=== PATIENT | male | born 1940 | race Caucasian/White ===

== ENCOUNTER 2016-09-28 14:14 | Inpatient (IN) | payer MEDICARE, OTHER ==
[~2016-09-28] VITALS: Ht 177.8 cm; Wt 111.7 kg
[2016-11-01] MEDS ORDERED: CLON1TAB PO (13:16)
[2016-11-01] MEDS ORDERED: CITA20TA4 PO (13:16)
[2016-11-01] MEDS ORDERED: LEXA20TA PO (13:16)
[2016-11-01] MEDS ORDERED: TAMS5CAP PO (15:27)
[2016-11-01] MEDS ORDERED: COZA100T PO (15:27)
[2016-11-01] MEDS ORDERED: TIZA2TAB PO (15:27)
[2016-11-01] MEDS ORDERED: TOLT1TAB16 PO (15:27)
[2016-11-01] MEDS ORDERED: AMLO10TA2 PO (15:27)
[2016-11-01] MEDS ORDERED: IBUP-232 PO (15:27)
[2016-11-01] MEDS ORDERED: MISC1TAB PO (15:27)
--- NOTE | 2016-12-24 23:58 | MH ---
cc: ANTHONY PEREA DATE OF ADMISSION: 12/25/2016 ADMITTING DIAGNOSIS: Malfunctioning left medial compartment resurfacing arthroplasty. HISTORY OF PRESENT ILLNESS: This patient is a 75 year-old male status post previous left knee resurfacing arthroplasty, who had done well but over the last year has developed progressive varus alignment and pain. Investigative study shows evidence of subsidence of the tibial component. He now presents for revision arthroplasty. PAST MEDICAL HISTORY: See attached notes. SOCIAL HISTORY, FAMILY HISTORY, AND REVIEW OF SYSTEMS: See attached notes. PHYSICAL EXAMINATION: GENERAL: The patient is a 75 year-old male in moderate distress with his left knee. HEENT: Normocephalic, atraumatic. Pupils equal, round, reactive to light and accommodation. Extraocular motions intact. NECK: Supple. CHEST: Clear. HEART: Regular rate and rhythm. ABDOMEN: Soft, nontender, normoactive bowel sounds. MUSCULOSKELETAL EXAMINATION: Left knee: Pain with range of motion, varus alignment, well-healed incision. Crepitus with range of motion, pain with range of motion. Neurologic and vascular examination is within normal limits. IMPRESSION: Malfunctioning left knee unicompartmental replacement arthroplasty. PLAN: Revision left total knee replacement arthroplasty. CONSENT: There are risks with surgery including infection, bleeding, loss of motion, continued pain, need for further surgery, neurologic or vascular injury, etc. The patient understands these issues and wishes to press on with surgery as outlined above. Anthony Perea MD [facility] [place] /10:49 PM /11:51 PM
[2016-12-25] MEDS ORDERED: BUPIVACAINE HCL PF 0.5% 30 ML VIAL NB ONE (07:20)
[2016-12-25] MEDS ORDERED: BUPIVACAINE HCL PF 0.25% 30 ML VIAL NB ONE (07:20)
[2016-12-25 09:50] VITALS: BP 114/67; PULSE 58; RESP 18; TEMP 98.6; O2SAT 95
[2016-12-25] MEDS ORDERED: VANCOMYCIN HCL 1000 MG VIAL ONE ×2 (10:11→10:36)
[2016-12-25] MEDS ORDERED: LACTATED RINGER'S 1000 ML INJ 1,000 ML ONE (10:11)
[2016-12-25] MEDS ORDERED: SODIUM CHLOR 0.9% 250 ML INJ 250 ML ONE ×2 (10:11→10:37)
[2016-12-25] MEDS ORDERED: GENTAMICIN SULFATE 80 MG/2 ML VIAL ONE (10:21)
[2016-12-25] MEDS ORDERED: DEXAMETHASONE SOD PHOS 4 MG/ML VIAL ONE (10:48)
[2016-12-25] MEDS ORDERED: FAMOTIDINE 20 MG/2 ML VIAL ONE (10:48)
[2016-12-25] MEDS ORDERED: MIDAZOLAM HCL 5 MG/5 ML VIAL ONE (10:48)
[2016-12-25] MEDS ORDERED: ceFAZolin 2 GM PREMIX 50 ML ONE (10:50)
[2016-12-25] MEDS: TRANEXAMIC ACID IV SCH ×2 (11:00→12:41)
[2016-12-25] MEDS ORDERED: VANCOMYCIN 1000 MG/NS 250 ML (for <70 kg) IV SCH ×2 (11:00)
[2016-12-25] MEDS: EXPAREL PERI-ARTICULAR INJECTION (TOTAL VOL. 60 ML) P-ARTICULR SCH ×4 (11:00→12:42)
[2016-12-25] MEDS: SODIUM CHLORIDE 0.9% IV SCH ×2 (11:00→12:41)
[2016-12-25] MEDS: POVIDONE IODINE 7.5% SCRUB 118 ML BOTTLE TOP SCH (11:00)
[2016-12-25] MEDS ORDERED: ceFAZolin 2 GM PREMIX 50 ML IV SCH (11:00)
[2016-12-25] MEDS ORDERED: METOPROLOL TARTRATE 25 MG TAB PO PRN (12:00)
[2016-12-25] MEDS ORDERED: INSULIN HUMAN REGULAR 1,000 UNITS/10 ML VIAL SQ PRN (12:00)
[2016-12-25] MEDS: SODIUM CHLORID 0.9% 500 ML IV SCH (12:00)
[2016-12-25] MEDS: LACTATED RINGER'S 1000 ML IV SCH (12:00)
[2016-12-25] MEDS ORDERED: NEOSTIGMINE 3 MG/3 ML SYR IV ONE (12:25)
[2016-12-25] MEDS ORDERED: PROPOFOL 200 MG/20 ML AMP IV ONE (12:25)
[2016-12-25] MEDS ORDERED: ONDANSETRON HCL 4 MG/2 ML VIAL IV PUSH ONE (12:25)
[2016-12-25] MEDS ORDERED: LACTATED RINGER'S 1000 ML INJ 1,000 ML IV ONE (12:25)
[2016-12-25] MEDS: LACTATED RINGER'S 1000 ML INJ 1,000 ML IV SCH (13:59)
[2016-12-25] MEDS ORDERED: TEMAZEPAM 15 MG CAP PO PRN (14:00)
[2016-12-25] MEDS ORDERED: NALOXONE HCL 0.4 MG/ML AMP IV PRN (14:00)
[2016-12-25] MEDS ORDERED: ALUMINUM/MAGNESIUM/SIMETH 30 ML CUP PO PRN (14:00)
[2016-12-25] MEDS ORDERED: MISCELLANEOUS NURSING INFORMATION XX PRN (14:00)
[2016-12-25] MEDS ORDERED: SODIUM CHLORIDE 0.9% FLUSH 5 ML FLUSH IVF PRN (14:00)
[2016-12-25] MEDS ORDERED: BISACODYL 10 MG SUPP PR PRN (14:00)
[2016-12-25] MEDS ORDERED: ONDANSETRON HCL 4 MG/2 ML VIAL IVP PRN (14:00)
[2016-12-25] MEDS ORDERED: Post-op Orders (for Pharmacy) MISC XX ONE (14:00)
[2016-12-25] MEDS ORDERED: MORPHINE SULFATE 8 MG/ML INJ IV PUSH PRN (14:00)
[2016-12-25] MEDS ORDERED: MORPHINE SULFATE 30 MG/30 ML PCA IV SCH (14:00)
--- NOTE | 2016-12-25 14:09 | PD.OP ---
cc: Isaiah Zhang. Operative Report Date of Surgery: Dec 25, 2016 Preoperative Diagnosis: Malfunctioning left knee replacement arthroplasty. Loosened tibial component Postoperative Diagnosis: Same Procedure: Revision left total knee replacement arthroplasty Anesthesia: Gen. Surgeon: Isaiah Zhang Manager Pmo(s): CANDELARIO Mohan Operation and Findings: EBL: 150 cc INDICATION: This patient presents after having had a partial knee replacement in the past. There is evidence of subsidence of the medial component. Mild varus deformity is seen. Reactive changes at the tibia are noted. This patient presents for revision knee surgery. NOTE: Veronica Mohan PA-C was present for the entire surgical procedure as my records management assistant. In my medical opinion her skill and care was necessary for proper management of this patient. TOURNIQUET TIME: 75 minutes COMPANY: [employer] FEMUR: Size 4, posterior stabilized, left TIBIA: Size 5, fixed bearing PATELLA: 38 mm POLYETHYLENE INSERT: 12.5mm, size 5 PROCEDURE: This patient was brought the operating room and anesthetized in the supine position. The patient was positioned supine on the table. The tourniquet was placed about the thigh, and the leg was scrubbed with alcohol followed by Hibiclens followed by ChloraPrep and draped sterilely. A timeout was done, and antibiotics were given. After exsanguination the tourniquet was inflated to 250 mmHg. An anterior incision was made excising the previous incision and a median parapatellar arthrotomy was performed. The patella was released laterally and subluxed allowing freehand cut of the patella which was then sized. A metal cap was placed over the exposed patellar surface for protection. A helicopter pilot instructor hole was placed in the distal femur allowing a 4 valgus cut removing 10 mm from the distal femur. The previous femoral component showed minimal loosening. We were able to cut behind that. We then used multiple osteotomes were removed from the rest the bone. It was able to be removed retrograde without having any significant loss of bone. Anterior posterior and chamfer cuts were made. The posterior stabilize osteotomy was made. The attention was directed to the tibia. Retractors were positioned. The external alignment guide was used allowing the lateral tibia to be used as referencing guide and cut utilizing an oscillating saw taking care to avoid any injury to the surrounding soft tissues. The tibial component had subsided. It was down especially on the medial edge. We left the tibial component in place and cut just below that sizing to take approximately 10-11 mm from the lateral side which removed about 5 mm from the medial side. This placed this right under the tibial component removing some of the previous bone cement. The medial side showed softening with granulation tissue consistent with tibial subsidence. This was sized properly. Trial reduction showed that the insert fit nicely. The patient had range of motion extension 0 flexion 125. A medial release as not necessary. The bony surfaces prepared. On the back table 2 packets of methylmethacrylate were mixed. The components were cemented. Excess cement was removed. The tourniquet let down and hemostasis was controlled. The final plastic insert was inserted. Range of motion was the same as previously noted. A drain was brought through a separate stab incision. The arthrotomy was repaired with interrupted #1 Vicryl suture, subcutaneous tissue 2-0 Vicryl suture and skin with metallic sharmila A sterile dressing was applied. Sponge counts, needle counts and instrument counts were all correct. The patient tolerated procedure well and was taken to recovery in satisfactory condition. FINDINGS: There was evidence of loosening of both tibial and the femoral component. Significant synovitis was seen with staining of the tissues consistent with metal wear. This was completely excised. The final result had excellent balancing in flexion and extension. No complication was appreciated. Isaiah Zhang MD Dec 25, 2016 14:09
[2016-12-25] MEDS ORDERED: HYDR-3580 PO (14:11)
[2016-12-25] MEDS ORDERED: XARE10TA PO (14:11)
[2016-12-25] MEDS ORDERED: PILL SPLITTER OTHER PRN (14:15)
[2016-12-25] MEDS ORDERED: MORPHINE SULFATE 4 MG/ML INJ ONE (14:36)
[2016-12-25] MEDS ORDERED: fentaNYL CITRATE 250 MCG/5 ML AMP ONE (14:36)
--- NOTE | 2016-12-25 16:25 | RADRPT ---
EXAM DATE/TIME: 12/25/2016 15:25 [facility] COMPARISON: KNEE LEFT LTD (1 OR 2VWS), January 27, 2015, 7:03. INDICATIONS : Evaluate post op left total knee replacement. MEDICAL HISTORY : Unobtainable. SURGICAL HISTORY : Unobtainable. ENCOUNTER: Initial ACUITY: 1 day PAIN SCORE: 0/10 LOCATION: Left knee. FINDINGS: Two view examination of the left knee demonstrates no evidence of fracture or dislocation. Bony mine ralization is normal. The suprapatellar soft tissues have a normal configuration. CONCLUSION: 1. The patient is post left knee arthroplasty. Orthopedic hardware is in good position. There are ski n sharmila and a surgical drain in place. Addy Hogue MD on December 25, 2016 at 16:23 Board Certified Radiologist. This report was verified electronically.
[2016-12-25] MEDS: TAMSULOSIN HCL 0.4 MG CAP PO SCH (20:39)
[2016-12-25] MEDS: MAGNESIUM HYDROXIDE SUSP 30 ML CUP PO SCH (20:39)
[2016-12-25] MEDS: TOLTERODINE TARTRATE 2 MG CAP LA PO SCH (20:40)
[2016-12-25] MEDS: ESCITALOPRAM OXALATE 20 MG TAB PO SCH (20:40)
[2016-12-25] MEDS: clonazePAM 1 MG TAB PO SCH (20:40)
[2016-12-25] MEDS: CITALOPRAM HYDROBROMIDE 20 MG TAB PO SCH (20:40)
[2016-12-25] MEDS: LOSARTAN 50 MG TAB PO SCH (20:41)
[2016-12-25] MEDS: SODIUM CHLORIDE 0.9% FLUSH 5 ML FLUSH IVF SCH (20:41)
[2016-12-25] MEDS: PCA - TOTAL MG MORPHINE DELIVERED PER SHIFT SCH (20:41)
[2016-12-25 20:55] VITALS: BP 116/78; PULSE 75; RESP 20; TEMP 97; O2SAT 93
[2016-12-26] VITALS (8 sets, daily range): BP systolic 98–141; BP diastolic 56–65; PULSE 60–68; RESP 16–20; TEMP 97.3–99.8; O2SAT 91–98
[2016-12-26] MEDS: LACTATED RINGER'S 1000 ML INJ 1,000 ML IV SCH ×3 (02:29→22:24)
[2016-12-26] MEDS: SODIUM CHLORID 0.9% 500 ML IV SCH (04:40)
[2016-12-26] MEDS: PCA - TOTAL MG MORPHINE DELIVERED PER SHIFT SCH (06:00)
[2016-12-26 06:55] LABS: HEMATOCRIT 30.4 % (39.0-51.0); REVIEW FLAG FINAL
[2016-12-26] MEDS: SODIUM CHLORIDE 0.9% FLUSH 5 ML FLUSH IVF SCH ×2 (09:00→21:00)
[2016-12-26] MEDS: MAGNESIUM HYDROXIDE SUSP 30 ML CUP PO SCH ×2 (09:14→21:00)
[2016-12-26] MEDS ORDERED: INFLUENZA VIRUS VACCINE (QUADRIVALENT) 0.5 ML SYR IM ONE (10:00)
[2016-12-26] MEDS ORDERED: PNEUMOCOCCAL POLYVALENT INJ 25 MCG/0.5 ML SYR IM ONE (10:00)
[2016-12-26] MEDS: MENTHOL LOZENGE BUCCAL PRN ×2 (10:19→13:52)
[2016-12-26] MEDS: POVIDONE IODINE 7.5% SCRUB 118 ML BOTTLE TOP SCH (11:00)
[2016-12-26] MEDS: LACTATED RINGER'S 1000 ML IV SCH (12:00)
[2016-12-26] MEDS: ACETAMINOPHEN/HYDROcodone 325 MG/7.5 MG TAB PO PRN ×2 (12:06→17:13)
[2016-12-26] MEDS ORDERED: MISC-163 (13:25)
[2016-12-26] MEDS ORDERED: CPMMACHINE (13:25)
[2016-12-26] MEDS ORDERED: WALKER WHEELS/F1 MIS (13:26)
[2016-12-26] MEDS: RIVAROXABAN 10 MG TAB PO SCH (13:30)
[2016-12-26] MEDS: CITALOPRAM HYDROBROMIDE 20 MG TAB PO SCH (20:39)
[2016-12-26] MEDS: ESCITALOPRAM OXALATE 20 MG TAB PO SCH (20:39)
[2016-12-26] MEDS: TOLTERODINE TARTRATE 2 MG CAP LA PO SCH (20:39)
[2016-12-26] MEDS: LOSARTAN 50 MG TAB PO SCH (20:39)
[2016-12-26] MEDS: TAMSULOSIN HCL 0.4 MG CAP PO SCH (20:39)
[2016-12-26] MEDS: clonazePAM 1 MG TAB PO SCH (20:39)
[2016-12-26] MEDS: MULTIVITAMINS/MINERALS THERAPEUTIC TAB PO SCH (20:40)
[2016-12-26] MEDS: SENNOSIDES 8.6 MG TAB PO SCH (21:00)
[2016-12-26] MEDS: DOCUSATE SODIUM 100 MG CAP PO SCH (21:00)
--- NOTE | 2016-12-26 21:28 | PD.ORT.PN ---
Subjective Subjective Remarks Seen at lunchtime today. Moderate left knee pain but still getting some relief from the preop block. Mild sensory deficit but also beginning to return. He had an episode of lightheadedness this morning. No new CP, abd pain or SOB. Objective Vitals Vital Signs Date Time Temp Pulse Resp B/P Pulse Ox O2 Delivery O2 Flow Rate FiO2 12/26/16 20:00 99.8 66 18 141/65 95 12/26/16 17:08 97 21 12/26/16 16:00 97.3 66 18 102/57 92 12/26/16 12:00 98.7 60 18 98/56 91 12/26/16 09:51 96 21 12/26/16 08:00 98.9 68 18 120/61 94 12/26/16 04:00 98.8 64 20 121/65 92 12/26/16 00:00 99.0 64 16 115/64 98 I/O 12/25/16 12/25/16 12/25/16 12/26/16 12/26/16 12/26/16 07:00 15:00 23:00 07:00 15:00 23:00 Intake Total 2000 ml 480 ml 640 ml 960 ml Output Total 625 ml 920 ml 1340 ml 400 ml Balance 1375 ml -440 ml -700 ml 560 ml Intake Oral 480 ml 720 ml IV Total 640 ml 240 ml Other 2000 ml Output Urine Total 650 ml 1150 ml 400 ml Drainage Total 270 ml 190 ml Estimated Blood Loss 200 ml Other 425 ml # Bowel Movements 0 0 Result Diagram: 12/26/16 0609 Objective Remarks Laying in bed, NAD Nasal cannula LLE Dressing c/d/i, drain in place, mild swelling, no erythema thigh and calf supple, neg homans +motor (4/5), +/- sens, +nvi Assessment & Plan Ortho Post Op Day #: 1 Problem List: Assessment and Plan pod#1 s/p Rev left TKA D/C BUTCHER MEAT - change to po pain meds. D/C knee drain tomorrow. Ouput over 400cc today. Xarelto 10mg qd PT - WBAT LLE. TKA protocol. CPM. Hold dressing changes unless saturated. D/C planning, likely SNF saturday. Prefers [facility]. DME written. Isaiah Zhang MD Dec 26, 2016 21:28
[2016-12-27 00:23] VITALS: BP 114/56; PULSE 69; RESP 21; TEMP 99.2; O2SAT 95
[2016-12-27] MEDS: ACETAMINOPHEN/HYDROcodone 325 MG/7.5 MG TAB PO PRN ×3 (02:59→19:58)
[2016-12-27] MEDS: POVIDONE IODINE 7.5% SCRUB 118 ML BOTTLE TOP SCH (07:33)
[2016-12-27 08:00] VITALS: BP 106/57; PULSE 69; RESP 18; TEMP 98.7; O2SAT 92
[2016-12-27] MEDS: MULTIVITAMINS/MINERALS THERAPEUTIC TAB PO SCH ×2 (08:41→19:58)
[2016-12-27] MEDS: MAGNESIUM HYDROXIDE SUSP 30 ML CUP PO SCH ×2 (08:42→19:56)
[2016-12-27] MEDS: DOCUSATE SODIUM 100 MG CAP PO SCH ×2 (08:42→19:56)
[2016-12-27] MEDS: SODIUM CHLORIDE 0.9% FLUSH 5 ML FLUSH IVF SCH ×2 (09:00→19:59)
[2016-12-27 09:28] VITALS: BP 99/51
--- NOTE | 2016-12-27 09:50 | HHI.DCPOC ---
Discharge Care Plan Diagnosis: (1) Left knee pain (2) Osteoarthritis of left knee (3) Mechanical complic of internal orthopedic device, implant or graft Your Health Problems Are: Incision/Drains Goals to Promote Your Health * To prevent worsening of your condition and complications * To maintain your health at the optimal level Directions to Meet Your Goals Take your medications as prescribed Follow your dietary instruction Follow activity as directed Keep your appointments as scheduled Take your immunizations and boosters as scheduled If your symptoms worsen call your PCP, if no PCP go to Urgent Care Center or Emergency Room Smoking is Dangerous to Your Health. Avoid second hand smoke Call the 24-hour hour crisis hotline for domestic abuse at Mimi Duff Dec 27, 2016 09:50
--- NOTE | 2016-12-27 09:50 | HHI.FF ---
Face to Face Verification Diagnosis: (1) Left knee pain (2) Osteoarthritis of left knee (3) Mechanical complic of internal orthopedic device, implant or graft Physical Therapy Gait training, Safety evaluation, Transfer training, bed to chair Knee: Total knee, Protocol: Left, Full weight bearing Canvas Knee Splint: When in bed & 2 pillows btw thighs Left LE Weight Bearing: WB as tolerated Additional Instructions PT 5 days/wk for 2 weeks. WBAT LLE. TKA protocol. CPM bid, 0-70 w goal of 100 flexion. Walker assist as needed. Nursing RN Days per Week: 2 x Week(s): 1 Nursing: Other Dressing Changes: Do not change dressing Additional Instructions Vitals assessment - dressing assessment, do not change unless saturated. I have seen patient Anthony Orta on 12/27/16. My clinical findings support the need for the requested home health care services because: Limited ability to care for self High risk of falls I certify that my clinical findings support that this patient is homebound because: Post-op weakness Unsteady gait/balance Mimi Duff Dec 27, 2016 09:49
--- NOTE | 2016-12-27 09:51 | HHI.DS ---
Discharge Summary Admission Date Dec 25, 2016 at 08:40 Discharge Date: Dec 28, 2016 Admitting Diagnosis see below Diagnosis: (1) Left knee pain Diagnosis: Principal (2) Osteoarthritis of left knee Diagnosis: Principal (3) Mechanical complic of internal orthopedic device, implant or graft Diagnosis: Principal Procedures Revisional left total knee arthroplasty Brief History This is a 76 year old male patient with a previous left partial knee replacement 4-5 years ago. He did well for several years but began having increased pain mid-2016. Conservative measures were pursued but he continued to be painful. Imaging studies were performed showing premature loosening of the prosthesis. Surgical treatment was recommended and he elected to move forward with revisional surgery. CBC/BMP: 12/26/16 0609 Significant Findings Laboratory Tests Test 12/26/16 06:09 Hemoglobin 10.1 GM/DL (13.0-17.0) Hematocrit 30.4 % (39.0-51.0) PE at Discharge Laying in bed, NAD Nasal cannula LLE Dressing c/d/i, drain in place, mild swelling, no erythema thigh and calf supple, neg homans +motor (4/5), +/- sens, +nvi Hospital Course Surgical treatment was performed on the day of admission without complication. He recovered well in PACU and was transferred to the orthopaedic floor. Pain was controlled with IV and oral medications. DVT prophylaxis was initiated pod# 1. He was compliant with PT and all TKA precautions. He had 2 vasovagal episodes which resolved. After 3 days he was found to be stable and discharged to halfway with instruction to continue PT and to pursue a high fiber diet. Pt Condition on Discharge: Stable Discharge Disposition: Discharge to SNF Discharge Instructions Diet Instructions: As Tolerated, No Restrictions, High Fiber Diet Activities You Can Perform: Weight Bearing as Alize Additional Activity Instruc.: TKA protocol New Medications: 3-in-1 Bedside Toilet (3-in-1 Bedside Toilet) 1 Mis Mis 1 EA .ROUTE DIRECTED #1 EA CPM-Continuous Passive Motion Machine (CPM-Continuous Passive Motion Machine) 1 Ea Device 1 EA .ROUTE DIRECTED #1 Ref 0 EA Walker with Front Wheels (Walker with Front Wheels) 1 Mis Mis 1 EA .ROUTE DIRECTED #1 Ref 0 EA Hydrocodone-Acetaminophen (Hydrocodone-Acetaminophen) 7.5-325 mg Tab 1 TAB PO Q4H PRN PAIN LESS THAN 5 ON SCALE #50 TAB Rivaroxaban (Xarelto) 10 Mg Tab 10 MG PO Q24H Prevent Blood Clot #15 TAB Continued Medications: Amlodipine (Amlodipine) 10 Mg Tab 10 MG PO HS Blood Pressure Management #30 Ref 0 TAB Citalopram (Citalopram) 20 Mg Tab 20 MG PO HS Control Depression #30 Ref 0 TAB Clonazepam (Clonazepam) 1 Mg Tab 1 MG PO HS #60 Ref 0 TAB Escitalopram (Lexapro) 20 Mg Tab 20 MG PO HS #30 Ref 0 TAB Ibuprofen (Ibuprofen) 600 Mg Tab 600 MG PO HS PRN PAIN SCALE 1 TO 10 Ref 0 TAB Losartan (Cozaar) 100 Mg Tab 100 MG PO HS Blood Pressure Management #30 Ref 0 TAB Misc Natural Products (Glucosamine Chondroitin T) 1 Tab Tab 1 TAB PO HS Tamsulosin (Flomax) 0.4 Mg Cap 0.4 MG PO HS Manage Prostate Problems #30 Ref 0 CAP Tizanidine (Tizanidine) 2 Mg Tab 2 MG PO BID Ref 0 TAB Tolterodine (Tolterodine) 2 Mg Tab 2 MG PO HS Urinary Symptom Managemen #60 Ref 0 TAB Mimi Duff Dec 27, 2016 09:50
--- NOTE | 2016-12-27 09:53 | PD.ORT.PN ---
Subjective Subjective Remarks He continues to have left knee pain but did better this morning than yesterday. Lightheadedness much better. No nausea. No new CP or SOB. No new radiating leg pain. Questions about hhc ve snf. Objective Vitals Vital Signs Date Time Temp Pulse Resp B/P Pulse Ox O2 Delivery O2 Flow Rate FiO2 12/27/16 00:23 99.2 69 21 114/56 95 12/26/16 20:00 99.8 66 18 141/65 95 12/26/16 17:08 97 21 12/26/16 16:00 97.3 66 18 102/57 92 12/26/16 12:00 98.7 60 18 98/56 91 I/O 12/26/16 12/26/16 12/26/16 12/27/16 12/27/16 12/27/16 07:00 15:00 23:00 07:00 15:00 23:00 Intake Total 640 ml 960 ml 1350 ml Output Total 1340 ml 400 ml 200 ml 800 ml Balance -700 ml 560 ml -200 ml 550 ml Intake Oral 720 ml 1350 ml IV Total 640 ml 240 ml Output Urine Total 1150 ml 400 ml 700 ml Drainage Total 190 ml 200 ml 100 ml # Voids 2 # Bowel Movements 0 0 Result Diagram: 12/26/16 0609 Procedures Revisional left total knee arthroplasty Objective Remarks Sitting up in bed, family at bedside NAD, VSS Nasal cannula removed LLE Dressing c/d/i, drain in place, mild swelling, no erythema thigh and calf supple, neg homans +motor, +sens +nvi Assessment & Plan Ortho Post Op Day #: 2 Problem List: (1) Left knee pain (2) Osteoarthritis of left knee (3) Mechanical complic of internal orthopedic device, implant or graft Assessment and Plan pod#2 s/p Rev left TKA Better today. No vasovagal episodes. PO pain meds as needed. D/C knee drain today, ok to redress drain site only. Xarelto 10mg qd PT - WBAT LLE. TKA protocol. CPM. Hold dressing changes unless saturated. D/C planning, likely SNF saturday. Prefers [facility]. DME written. Mimi Duff Dec 27, 2016 09:53
[2016-12-27] MEDS: LACTATED RINGER'S 1000 ML IV SCH (10:54)
[2016-12-27 12:00] VITALS: BP 92/54; PULSE 66; RESP 18; TEMP 97.8; O2SAT 92
[2016-12-27] MEDS: RIVAROXABAN 10 MG TAB PO SCH (13:48)
[2016-12-27] MEDS: LACTATED RINGER'S 1000 ML INJ 1,000 ML IV SCH (15:59)
[2016-12-27 16:00] VITALS: BP 119/59; PULSE 78; RESP 18; TEMP 99; O2SAT 95
[2016-12-27] MEDS: ESCITALOPRAM OXALATE 20 MG TAB PO SCH (19:54)
[2016-12-27] MEDS: SENNOSIDES 8.6 MG TAB PO SCH (19:55)
[2016-12-27] MEDS: TAMSULOSIN HCL 0.4 MG CAP PO SCH (19:55)
[2016-12-27] MEDS: LOSARTAN 50 MG TAB PO SCH (19:55)
[2016-12-27] MEDS: TOLTERODINE TARTRATE 2 MG CAP LA PO SCH (19:56)
[2016-12-27] MEDS: CITALOPRAM HYDROBROMIDE 20 MG TAB PO SCH (19:56)
[2016-12-27] MEDS: clonazePAM 1 MG TAB PO SCH (19:57)
[2016-12-27 20:00] VITALS: BP 123/60; PULSE 80; RESP 20; TEMP 99.8; O2SAT 93
[2016-12-28] VITALS (8 sets, daily range): BP systolic 85–135; BP diastolic 45–70; PULSE 64–76; RESP 16–21; TEMP 96.4–99.6; O2SAT 90–96
[2016-12-28] MEDS: ACETAMINOPHEN/HYDROcodone 325 MG/7.5 MG TAB PO PRN ×4 (02:26→21:15)
[2016-12-28] MEDS: LACTATED RINGER'S 1000 ML INJ 1,000 ML IV SCH ×2 (04:29→15:35)
--- NOTE | 2016-12-28 08:02 | PD.ORT.PN ---
Subjective Subjective Remarks Left knee pain but continues to improve. Doing well w CPM. Spoke to family and prefers SNF. Lightheadedness much better but one low BP reading last night. Appetite good. Urinating well. No new CP or SOB. No new radiating leg pain. Objective Vitals Vital Signs Date Time Temp Pulse Resp B/P Pulse Ox O2 Delivery O2 Flow Rate FiO2 12/28/16 00:00 96.4 64 20 102/50 91 12/27/16 20:00 99.8 80 20 123/60 93 12/27/16 16:00 99.0 78 18 119/59 95 12/27/16 12:00 97.8 66 18 92/54 92 12/27/16 09:28 99/51 I/O 12/27/16 12/27/16 12/27/16 12/28/16 12/28/16 12/28/16 07:00 15:00 23:00 07:00 15:00 23:00 Intake Total 1350 ml 600 ml Output Total 800 ml 480 ml Balance 550 ml 120 ml Intake Oral 1350 ml 600 ml Output Urine Total 700 ml 400 ml Drainage Total 100 ml 80 ml # Voids 2 2 # Bowel Movements 0 1 Result Diagram: 12/26/16 0609 Procedures Revisional left total knee arthroplasty Objective Remarks Sitting up in bed, on CPM NAD, VSS Nasal cannula removed LLE Dressing c/d/i, drain removed site clean, mild swelling, no erythema thigh and calf supple, neg homans +motor, +sens +nvi Assessment & Plan Ortho Post Op Day #: 3 Problem List: (1) Left knee pain (2) Osteoarthritis of left knee (3) Mechanical complic of internal orthopedic device, implant or graft Assessment and Plan pod#3 s/p Rev left TKA Ok to d/c to SNF today. Due to episodes of low BP, repeat HG/hct one last time. Instructed SNF to hold BP meds for 48 hours. PO pain meds as needed. Xarelto 10mg qd PT - WBAT LLE. TKA protocol. CPM. Hold dressing changes unless saturated. F/U in 2 weeks as scheduled. DME written. Mimi Duff Dec 28, 2016 08:02
[2016-12-28] MEDS: SODIUM CHLORIDE 0.9% FLUSH 5 ML FLUSH IVF SCH (08:30)
[2016-12-28] MEDS: MULTIVITAMINS/MINERALS THERAPEUTIC TAB PO SCH ×2 (08:30→21:12)
[2016-12-28] MEDS: MAGNESIUM HYDROXIDE SUSP 30 ML CUP PO SCH ×2 (08:30→21:00)
[2016-12-28] MEDS: DOCUSATE SODIUM 100 MG CAP PO SCH ×2 (08:30→21:00)
[2016-12-28 11:07] LABS: HEMATOCRIT 26.6 % (39.0-51.0); REVIEW FLAG FINAL
[2016-12-28] MEDS: LACTATED RINGER'S 1000 ML IV SCH (12:00)
[2016-12-28] MEDS: RIVAROXABAN 10 MG TAB PO SCH (12:54)
[2016-12-28] MEDS: TOLTERODINE TARTRATE 2 MG CAP LA PO SCH (21:00)
[2016-12-28] MEDS: SENNOSIDES 8.6 MG TAB PO SCH (21:00)
[2016-12-28] MEDS: CITALOPRAM HYDROBROMIDE 20 MG TAB PO SCH (21:12)
[2016-12-28] MEDS: ESCITALOPRAM OXALATE 20 MG TAB PO SCH (21:12)
[2016-12-28] MEDS: TAMSULOSIN HCL 0.4 MG CAP PO SCH (21:12)
[2016-12-28] MEDS: clonazePAM 1 MG TAB PO SCH (21:12)
[2016-12-29 00:21] VITALS: BP 134/70; PULSE 72; RESP 20; TEMP 99.2; O2SAT 96
[2016-12-29 05:04] VITALS: BP 126/73; PULSE 70; RESP 20; TEMP 98.3; O2SAT 95
[2016-12-29] MEDS: LACTATED RINGER'S 1000 ML INJ 1,000 ML IV SCH (05:29)
[2016-12-29 07:18] VITALS: BP 110/59; PULSE 68; RESP 19; TEMP 98.7; O2SAT 94
--- NOTE | 2016-12-29 07:50 | PD.ORT.PN ---
Subjective Subjective Remarks painful but tolerable. ready to go to snf. Objective Vitals Vital Signs Date Time Temp Pulse Resp B/P Pulse Ox O2 Delivery O2 Flow Rate FiO2 12/29/16 05:04 98.3 70 20 126/73 95 12/29/16 00:21 99.2 72 20 134/70 96 12/28/16 20:00 99.6 74 21 135/65 96 12/28/16 16:00 98.7 76 19 117/57 93 12/28/16 12:00 99.2 74 19 111/54 93 12/28/16 10:45 110/70 90/58 85/45 12/28/16 10:05 89/52 Automatic Cuff 12/28/16 08:00 98.0 72 19 109/57 92 I/O 12/28/16 12/28/16 12/28/16 12/29/16 12/29/16 12/29/16 07:00 15:00 23:00 07:00 15:00 23:00 Intake Total 240 ml 720 ml 800 ml 500 ml Output Total 800 ml 600 ml Balance 240 ml -80 ml 800 ml -100 ml Intake Oral 240 ml 720 ml 800 ml 500 ml Output Urine Total 800 ml 600 ml # Voids 1 # Bowel Movements 0 0 Result Diagram: 12/28/16 1053 Procedures Revisional left total knee arthroplasty Objective Remarks Sitting up in bed NAD, VSS LLE Dressing c/d/i, drain site clean, mild swelling, no erythema thigh and calf supple, neg homans +motor, +sens +nvi Assessment & Plan Ortho Post Op Day #: 4 Problem List: (1) Left knee pain (2) Osteoarthritis of left knee (3) Mechanical complic of internal orthopedic device, implant or graft Assessment and Plan pod#4 s/p Rev left TKA Ok to d/c to SNF today. Due to episodes of low BP, repeat HG/hct one last time. Instructed SNF to hold BP meds for 48 hours. PO pain meds as needed. Xarelto 10mg qd PT - WBAT LLE. TKA protocol. CPM. Hold dressing changes unless saturated. F/U in 2 weeks as scheduled. DME written. Camilo Coelho Dec 29, 2016 07:50
[2016-12-29] MEDS: SODIUM CHLORIDE 0.9% FLUSH 5 ML FLUSH IVF SCH ×2 (09:00→09:47)
[2016-12-29] MEDS: MAGNESIUM HYDROXIDE SUSP 30 ML CUP PO SCH (09:00)
[2016-12-29] MEDS: DOCUSATE SODIUM 100 MG CAP PO SCH (09:47)
[2016-12-29] MEDS: MULTIVITAMINS/MINERALS THERAPEUTIC TAB PO SCH (09:47)
[2016-12-29] MEDS: ACETAMINOPHEN/HYDROcodone 325 MG/7.5 MG TAB PO PRN ×2 (09:49→17:40)
--- NOTE | 2016-12-29 09:58 | PD.CONS ---
HPI Service [facility] Hospitalists Consult Requested By Dr. Zhang Reason for Consult Hypotension Primary Care Physician Tavo Baires MD Diagnoses: (1) Osteoarthritis of left knee (2) Hypotension (3) Hyperlipidemia (4) Hypertension (5) Left knee pain History of Present Illness The patient is a 76-year-old male with history of left knee pain status post revision of left total knee arthroplasty, POD #4. Hospitalist consultation has been requested for evaluation of low blood pressure. Patient has a history of hypertension and takes losartan 100 mg daily and amlodipine 10 mg daily. He states that he has been lightheaded and dizzy with standing. He also has had occasional dizziness while lying in bed. No dizziness or lightheadedness at this time. Denies chest pain or dyspnea. Has had some hot and cold spells, but no documented fever. Review of Systems Constitutional: DENIES: Fever, Chills, Night Sweats Eyes: DENIES: Blurred vision, Vision loss Ears, nose, mouth, throat: DENIES: Hearing loss Respiratory: DENIES: Cough, Wheezing, Sputum production, Shortness of breath Cardiovascular: DENIES: Chest pain, Palpitations, Syncope, Dyspnea on Exertion , Lower Extremity Edema Gastrointestinal: DENIES: Abdominal pain, Constipation, Diarrhea, Nausea, Vomiting Genitourinary: DENIES: Urinary frequency, Urinary incontinence, Urgency, Hematuria, Dysuria, Nocturia Musculoskeletal: COMPLAINS OF: Joint pain, DENIES: Muscle aches Integumentary: DENIES: Pruritus, Rash Hematologic/lymphatic: DENIES: Bruising Neurologic: DENIES: Headache Past Family Social History Allergies: Coded Allergies: No Known Allergies (Verified , 12/26/16) Past Medical History Hypertension Hyperlipidemia Restless leg syndrome Degenerative disc disease of the lumbosacral region Osteoarthritis Past Surgical History Left great toe surgery Deviated septum Partial knee replacement 2013 Left knee arthroscopy 2016 Reported Medications Losartan 100 mg daily Amlodipine 10 mg daily Tamsulosin 0.4 mg daily Klonopin as needed for insomnia Zanaflex as needed Ibuprofen as needed Citalopram 20 mg daily Tolterodine 2 mg daily Family History Diabetes Stroke Lupus MS Physical Exam Vital Signs Vital Signs Date Time Temp Pulse Resp B/P Pulse Ox O2 Delivery O2 Flow Rate FiO2 12/29/16 07:18 98.7 68 19 110/59 94 12/29/16 05:04 98.3 70 20 126/73 95 2/18/17 00:21 99.2 72 20 134/70 96 12/28/16 20:00 99.6 74 21 135/65 96 12/28/16 16:00 98.7 76 19 117/57 93 12/28/16 12:00 99.2 74 19 111/54 93 12/28/16 10:45 110/70 90/58 85/45 12/28/16 10:05 89/52 Automatic Cuff Physical Exam GENERAL: Well-nourished, well-developed male in no acute distress. HEENT: Normocephalic, atraumatic. Pupils equal, round and reactive. Extraocular movements intact. No scleral icterus. No injection or drainage. Oropharynx is clear. Mucous membranes are moist. CARDIOVASCULAR: Regular rate and rhythm without murmurs, gallops, or rubs. RESPIRATORY: Clear to auscultation. No wheezes, rales, or rhonchi. Breathing is non-labored. GASTROINTESTINAL: Abdomen soft, non-tender, nondistended. EXTREMITIES: No lower extremity edema. No calf tenderness. Left knee surgical wound bandaged. GARRETT hose. PSYCH: Alert and oriented x 3. Laboratory Laboratory Tests Test 12/28/16 10:53 Hemoglobin 9.0 Hematocrit 26.6 Result Diagram: 12/28/16 1053 Imaging Last Impressions Knee X-Ray 12/25/16 1359 Signed Impressions: Service Date/Time: Sunday, December 25, 2016 15:25 - CONCLUSION: 1. The patient is post left knee arthroplasty. Orthopedic hardware is in good position. There are skin sharmila and a surgical drain in place. Addy Hogue MD Assessment and Plan Assessment and Plan 1. Left knee pain, osteoarthritis: Status post revision of left total knee arthroplasty, POD #4. Management per orthopedic surgery. Continue pain control, bowel regimen, physical therapy. 2. Hypertension with recent low blood pressures: Antihypertensive medications are on hold. Hypotension possibly secondary to medications, anemia. Blood pressure has improved since yesterday. H&H pending this morning. 3. Postoperative anemia: Check stat H&H. Consider transfusion if hemoglobin decreasing. 4. DVT prophylaxis: Xarelto. Code Status Per orthopedic surgery, plan is for discharge to SNF today. Check stat H&H. Hold blood pressure medication for next 48 hours and monitor blood pressures routinely. Navi Noe MD Dec 29, 2016 09:58
[2016-12-29 11:14] VITALS: BP 129/62; PULSE 70; RESP 19; TEMP 98.7; O2SAT 93
[2016-12-29 11:32] LABS: HEMATOCRIT 26.9 % (39.0-51.0); REVIEW FLAG FINAL
[2016-12-29] MEDS: LACTATED RINGER'S 1000 ML IV SCH (12:00)
[2016-12-29] MEDS: RIVAROXABAN 10 MG TAB PO SCH (15:07)
[2016-12-29 15:45] VITALS: BP 122/63; PULSE 72; RESP 19; TEMP 97.8; O2SAT 95
== END 2016-12-29 18:09 | DRG 468 ==
LOC: HSDI 12-25 08:40 → N06B 12-25 19:59
PROVIDERS: ADMIT Orthopaedic Surgery Orthopaedic Surgery of the Spine; ATTEND Orthopaedic Surgery Orthopaedic Surgery of the Spine
PROC: 0SPD0JZ Removal of Synthetic Substitute from Left Knee Joint, Open Approach (ICD-10-PCS; 2016-12-25)
PROC: 0QRF0JZ Replacement of Left Patella with Synthetic Substitute, Open Approach (ICD-10-PCS; 2016-12-25)
PROC: 0SRD0J9 Replacement of Left Knee Joint with Synthetic Substitute, Cemented, Open Approach (ICD-10-PCS; principal; 2016-12-25 11:25)
DX: T84.033A Mechanical loosening of internal left knee prosthetic joint, initial encounter (principal); D64.9 Anemia, unspecified; I10 Essential (primary) hypertension; I95.2 Hypotension due to drugs; M21.162 Varus deformity, not elsewhere classified, left knee; M65.862 Other synovitis and tenosynovitis, left lower leg; E78.2 Mixed hyperlipidemia; E66.9 Obesity, unspecified; G25.81 Restless legs syndrome; M51.37 Other intervertebral disc degeneration, lumbosacral region; F32.9 Major depressive disorder, single episode, unspecified; T50.905A Adverse effect of unspecified drugs, medicaments and biological substances, initial encounter; Y92.239 Unspecified place in hospital as the place of occurrence of the external cause; Z28.82 Immunization not carried out because of caregiver refusal; Z87.891 Personal history of nicotine dependence; Z68.35 Body mass index [BMI] 35.0-35.9, adult
CPT/HCPCS: 73560; 85014; 85018; 86850; 86900; 86901; 86920; 94150; C1776; C9290; J0690; J1100; J1580; J2250; J2270; J2405; J2710; J3010; J3370; J7050; J7120; L1830